=== PATIENT | male | born 1980 | race Caucasian/White ===

== ENCOUNTER 2021-04-20 09:00 | Outpatient (CLI) | payer BC, SELFPAY ==
--- NOTE | ~2021-04-20 | US_ITS ---
EXAMINATION: US abdomen limited DATE: 04/20/2021 09:22 INDICATION: Right upper quadrant abdominal pain. TECHNIQUE: Multiple grayscale and Doppler ultrasound images of the abdomen were obtained. COMPARISON: None FINDINGS: The visualized portions of the head, body, and tail of the pancreas are normal. The liver i s normal without focal lesion. There is normal flow in main portal vein. The gallbladder is normal in size and contains polyps measuring up to 4 mm, likely benign cholesterol polyps needing no follow-up . No gallstones, gallbladder wall thickening, or sonographic Costa sign. The common duct is normal a nd measures 4 mm. IMPRESSION: 1. No etiology for the patient's symptoms. Reviewed, dictated and finalized at location A.
== END 2021-04-20 09:01 | disposition home or self-care (01) ==
LOC: CHSIMG 09:03
PROVIDERS: PCP Nurse Practitioner Family; Visit Provider Nurse Practitioner Family
DX: R10.11 Right upper quadrant pain (principal)
CPT/HCPCS: 76705

== ENCOUNTER 2021-05-04 10:25 | Outpatient (CLI) | payer BC, SELFPAY ==
[2021-05-04 10:48] LABS: Basophils Absolute Auto 0.1 K/mm3 (0.0-0.1); Basophils Percent Auto 1.9 % (0.2-1.2); Eosinophils Absolute Auto 0.2 K/mm3 (0-0.3); Eosinophils Percent Auto 3.3 % (0-4.4); Hematocrit 44.1 % (42.0-52.0); Hemoglobin 14.7 g/dL (14.0-18.0); Immature Granulocyte Absolute 0.06 K/mm3 (0.00-0.031); Immature Granulocyte Percent A 1.2 % (0-0.5); Lymphocytes Absolute Auto 1.79 K/mm3 (0.9-3.2); Mean Corpuscular HGB Conc 33.3 g/dl (32-36); Mean Corpuscular Hemoglobin 29.8 pg (26-34); Mean Corpuscular Volume 89.5 fl (80-100); Mean Platelet Volume 9.5 fl (7.4-10.4); Monocytes Absolute Auto 0.6 K/mm3 (0.1-0.6); Neutrophils Absolute Auto 2.1 K/mm3 (1.3-6.7); Neutrophils Percent Auto 43.6 % (45.5-73.1); Platelet Count Result 209 k/mm3 (150-375); Red Blood Count 4.93 M/mm3 (4.6-6.20); Red Cell Distribution Width 13.6 % (11.5-14.5); White Blood Count 4.8 K/mm3 (4.5-10.0)
[2021-05-04 11:03] LABS: Alanine Aminotransferase 34 U/L (4-50); Albumin Level 4.1 g/dL (3.5-5.1); Alkaline Phosphatase 71 U/L (38-126); Anion Gap 9 mmol/L (8-16); Aspartate Amino Transferase 36 U/L (17-59); Bilirubin,Total 0.3 mg/dL (0.2-1.3); Blood Urea Nitrogen 10 mg/dL (9-20); Calcium 9.4 mg/dL (8.4-10.2); Carbon Dioxide 25 mmol/L (22-30); Chloride 105 mmol/L (98-107); Cholesterol 149 mg/dL (0-200); Estimated Glomerular Filt Rate > 60; Glucose 100 mg/dL (75-110); HDL Direct 31 mg/dL; Lipase 141 U/L (23-300); Potassium 4.1 mmol/L (3.4-5.0); Sodium 139 mmol/L (137-145); Triglycerides 327 mg/dL (<150)
[2021-05-04 11:14] LABS: LDL Cholesterol Direct 68 mg/dL
== END 2021-05-04 10:26 | disposition home or self-care (01) ==
LOC: ANHLAB 10:28
PROVIDERS: PCP Nurse Practitioner Family; Visit Provider Surgery
DX: R10.11 Right upper quadrant pain (principal)
CPT/HCPCS: 36415; 80053; 80061; 83690; 85025

== ENCOUNTER → 2022-05-07 08:17 | Outpatient (CLI) | payer BC, SELFPAY ==
--- NOTE | ~2022-05-07 | US_ITS ---
EXAMINATION: US abdomen limited DATE: 05/07/2022 08:40 INDICATION: Cholesterolosis of the gallbladder TECHNIQUE: Multiple grayscale and Doppler ultrasound images of the abdomen were obtained. COMPARISON: 04/20/2021 FINDINGS: Abdominal aorta is normal in caliber measuring 2.6 similar at the proximal aorta tapering to 2.4 cm t he mid aorta and 2.1 cm in the distal aorta the visualized proximal to mid inferior vena cava is norm al. The pancreatic head and body are normal in appearance. The pancreatic tail is obscured by shadow ing bowel gas. Liver has normal echogenicity and contour, with a smooth surface. 10 mm anechoic hepat ic cyst along the gallbladder fossa. No other liver lesion identified. No intrahepatic biliary duct d ilation suspected. Portal venous flow was seen in the hepatopetal, normal direction and has normal Do ppler waveform. Again seen are a few <5 mm peripheral echogenic nonshadowing nodules along the gallbl adder wall consistent with gallbladder polyps. The common bile duct measures 3 mm, which is normal. S onographic Costa sign was reported as negative by the assistant maintenance manager. Right kidney measures 12.0 cm in length with normal contour and echogenicity and no hydronephrosis. IMPRESSION: 1. No evident change in a few <5 mm gallbladder polyps which require no further workup or follow-up. Reviewed, dictated and finalized at location B.
== END ==
PROVIDERS: PCP Nurse Practitioner Family; Visit Provider Surgery
DX: K82.4 Cholesterolosis of gallbladder (principal)
CPT/HCPCS: 76705

== ENCOUNTER → 2023-06-02 07:57 | Outpatient (CLI) | payer BC, SELFPAY ==
--- NOTE | ~2023-06-02 | US_ITS ---
EXAMINATION: US abdomen limited DATE: 06/02/2023 08:15 INDICATION: Gallbladder polyps TECHNIQUE: Multiple grayscale and Doppler ultrasound images of the abdomen were obtained. COMPARISON: 05/07/2022 FINDINGS: Abdominal aorta is normal in caliber measuring 2.3 cm in AP diameter proximally, 2.0 cm in the mid ao rta and 2.0 cm in the distal aorta. Visualized proximal to mid inferior vena cava is normal. The panc reatic head and body are normal in appearance. The pancreatic tail is not visualized. Liver has norm al echogenicity and contour, with a smooth surface. 9 mm anechoic hepatic cyst along the gallbladder fossa. No intrahepatic biliary duct dilation suspected. Portal venous flow was seen in the hepatopeta l, normal direction and has normal Doppler waveform. Again seen are a few echogenic nonshadowing pedu nculated likely cholesterol polyps along the periphery of the gallbladder the largest measuring 5 mm in maximal diameter. There is no cholelithiasis. The common bile duct measures 3 mm, which is normal. Sonographic Costa sign was reported as negative by the lamination spinner. Right kidney measures 12.6 cm i n length with normal echogenicity and contour and no hydronephrosis. IMPRESSION: 1. A few scattered gallbladder polyps, the largest measuring 5 mm which require no further follow-up. Reviewed, dictated and finalized at location L.
== END ==
PROVIDERS: PCP Surgery; Visit Provider Surgery
DX: K82.4 Cholesterolosis of gallbladder (principal)
CPT/HCPCS: 76705